=== PATIENT | male | born 1990 | race Hispanic/Latino ===

== ENCOUNTER 2017-06-05 08:30 | Emergency (ER) | payer BC ==
[2017-06-05 08:36] VITALS: BP 146/85; PULSE 70; RESP 16; TEMP 97; BMI 23.7
[2017-06-05 08:43] VITALS: O2SAT 98
[2017-06-05] MEDS ORDERED: Naproxen 500 MG TAB PO STA (09:10)
--- NOTE | 2017-06-05 09:13 | ED PDOC ---
HPI: General Adult Time Seen by Provider: 06/05/17 09:03 Chief Complaint (Nursing): Upper Extremity Problem/Injury History Per: Patient Onset/Duration Of Symptoms: Days (2) Current Symptoms Are (Timing): Still Present Severity: Moderate Pain Scale Rating Of: 4 Additional Complaint(s): Sharp left sided neck pain radiating to shoulder and left arm.Sxs x 2 days. Pain worse when turning head to left. No weakness or parasthesias. No injury. No fever. Past Medical History Vital Signs: Last Vital Signs Temp 97 F L 06/05/17 08:35 Pulse 70 06/05/17 08:35 Resp 16 06/05/17 08:35 BP 146/85 06/05/17 08:35 Pulse Ox 98 06/05/17 09:13 - Medical History PMH: No Chronic Diseases - Family History Family History: States: Unknown Family Hx - Home Medications Home Medications: Ambulatory Orders Medication Instructions Recorded Cyclobenzaprine [Cyclobenzaprine 10 mg PO TID #10 tab 06/05/17 HCl] Naproxen [Naprosyn] 500 mg PO Q12H #20 tab 06/05/17 - Allergies Allergies/Adverse Reactions: Allergies Allergy/AdvReac Type Severity Reaction Status Date / Time No Known Allergies Allergy Verified 06/05/17 08:42 Review of Systems Constitutional: Negative for: Fever Cardiovascular: Negative for: Chest Pain Musculoskeletal: Positive for: Neck Pain Neurological: Negative for: Weakness, Numbness Physical Exam - Physical Exam Appears: Positive for: Non-toxic, No Acute Distress Skin: Positive for: Normal Color, Warm, DRY Neck: Positive for: Supple, Pain On Movement Of Neck (Left side) Cardiovascular/Chest: Positive for: Regular Rate, Rhythm Respiratory: Positive for: Normal Breath Sounds Extremity: Positive for: Normal ROM Neurologic/Psych: Positive for: Alert, Oriented. Negative for: Motor/Sensory Deficits - ECG O2 Sat by Pulse Oximetry: 98 Disposition - Clinical Impression Clinical Impression: Radiculopathy, cervical - Patient ED Disposition Is Patient to be Admitted: No Counseled Patient/Family Regarding: Studies Performed, Diagnosis, Need For Followup, Rx Given - Disposition Referrals: [facility] [Outside] Disposition: Routine/Home Disposition Time: 09:35 Condition: FAIR Prescriptions: Cyclobenzaprine [Cyclobenzaprine HCl] 10 mg PO TID #10 tab Naproxen [Naprosyn] 500 mg PO Q12H #20 tab Instructions: Cervical Radiculopathy (ED)
[2017-06-05] MEDS ORDERED: Naproxen 500 MG TAB PO ONE (09:46)
--- NOTE | 2017-06-05 11:33 | RAD ---
PROCEDURE: Cervical Spine Radiographs. HISTORY: Pain. COMPARISON: None available. FINDINGS: BONES: Straightening of the normal cervical lordosis may be related to muscle spasm or positioning. No acute displaced fracture identified. Dens tip obscured. DISC SPACES: Unremarkable. SOFT TISSUES: Unremarkable. No prevertebral soft tissue swelling. OTHER FINDINGS: Evidence of cerclage type wire projected over the left mandible. IMPRESSION: Straightening of the normal cervical lordosis may be related to muscle spasm or positioning. The dens tip is obscured.
== END 2017-06-05 10:35 | disposition home or self-care (01) ==
LOC: H.ER 08:30
DX: M54.12 Radiculopathy, cervical region (principal)